=== PATIENT | male | born 1985 | race American Indian/Alaskan Native ===

== ENCOUNTER 2022-01-19 14:37 | Emergency (ER) | payer OTHER ==
[2022-01-19 15:33] VITALS: BP 137/86
[2022-01-19] MEDS ORDERED: IBUPROFEN 800 MG TAB PO ONE (17:19)
[2022-01-19] MEDS ORDERED: HYDROcodone/ACETAMINOPHEN 10-325MG TAB PO ONE (17:19)
[2022-01-19] MEDS ORDERED: CYCLOBENZAPRINE 10 MG TAB PO ONE (17:19)
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
== END 2022-01-19 19:00 | disposition home or self-care (01) ==
LOC: ED 14:37
DX: M79.18 Myalgia, other site (principal); V89.2XXA Person injured in unspecified motor-vehicle accident, traffic, initial encounter; Y93.89 Activity, other specified; Y92.89 Other specified places as the place of occurrence of the external cause; Y99.8 Other external cause status
CPT/HCPCS: 99282